=== PATIENT | male | born 1955 | race Caucasian/White ===

== ENCOUNTER 2020-12-03 03:23 | Emergency (ER) | payer OTHER ==
[~2020-12-03] VITALS: Ht 170.2 cm; Wt 65.8 kg
[~2020-12-03 03:23] MED LIST: BP MED; CELEXA40 MG; IBUPROFEN 600600 M1 PO; NAPROSYN500 MG PO; NOHOMEMEDICATIONS; NORCO 5-325 TA1 EACH PO; PRILOSEC40 MG PO
[2020-12-03 04:53] LABS: ABSOLUTE NEUTROPHILS 3.1 thou/uL (1.4-8.2); ANION GAP 11 mmol/L (7-16); BASOPHILS 0.6 % (0.0-2.0); BUN 8 mg/dL (7-18); CALCIUM 8.9 mg/dL (8.5-10.1); CHLORIDE 103 mmol/L (98-107); CO2 25 mmol/L (21-32); CREATININE 0.8 mg/dL (0.7-1.3); EOSINOPHILS 0.5 % (0.0-3.0); GLUCOSE 141 mg/dL (74-106); HEMATOCRIT 46.2 % (42.0-52.0); HEMOGLOBIN 15.8 gm/dL (14.0-18.0); LYMPHOCYTES 28.5 % (24.0-44.0); MCH 32.1 pg (26.0-34.0); MCHC 34.1 g/dL (28.0-37.0); MCV 94.1 fL (80.0-100.0); MONOCYTES 10.3 % (1.0-8.0); PLATELET COUNT 210 thou/uL (150-400); POLYS 60.1 % (36.0-66.0); POTASSIUM 3.4 mmol/L (3.5-5.1); RDW 14.4 % (10.5-14.5); SODIUM 139 mmol/L (136-145); WBC 5.2 thou/uL (4.0-11.0)
[2020-12-03 04:58] LABS: SALICYLATE 4.8 mg/dL (2.8-20.0)
[2020-12-03 06:05] VITALS: BP 152/92
--- NOTE | 2020-12-03 09:48 | EKG ---
[place] [address] [facility] [employer] [place] [address] ELECTROCARDIOGRAM REPORT Name: TONAROSENDO Room #: REG MSalvatore#: [id number] Admission: 12/03/20 Attend Phys: Discharge: Date of : 53 Report #: [id number] [facility] ED Test Date: 2020-12-03 Test Time: 04:25:38 Pat Name: ROSENDO CARBONE Department: Room: Gender: M Lead Advisor: : [id number] Requested By: Pura Perdomo Order Number: [id number] MD: Foreign Phelps Measurements Intervals [place] Rate: 100 P: 48 CA: 167 QRS: 14 QRSD: 88 T: 248 QT: 357 QTc: 461 Interpretive Statements Sinus tachycardia Borderline repolarization abnormality Compared to ECG 02/08/1994 18:27:00 Sinus rhythm no longer present Atrial abnormality no longer present Electronically Signed On 12-03-2020 9:48:06 CDT by Foreign Phelps [email or web address] <ELECTRONICALLY SIGNED> By: Foreign Phelps MD, [facility] 12/03/20 0948 0425 0425 Foreign Phelps MD, FACC /EPI
== END 2020-12-03 06:16 | disposition home or self-care (01) ==
LOC: ER 03:23
PROVIDERS: Emergency Medicine
DX: R42 Dizziness and giddiness (principal); F10.129 Alcohol abuse with intoxication, unspecified; F32.9 Major depressive disorder, single episode, unspecified; I10 Essential (primary) hypertension; F17.210 Nicotine dependence, cigarettes, uncomplicated; Z79.1 Long term (current) use of non-steroidal anti-inflammatories (NSAID); Z79.899 Other long term (current) drug therapy; Z88.5 Allergy status to narcotic agent; Y90.9 Presence of alcohol in blood, level not specified